=== PATIENT | male | born 1965 | race African-American/Black ===

== ENCOUNTER 2020-06-12 15:05 | Emergency (ER) | payer MEDICAID, SELFPAY ==
[~2020-06-12] VITALS: Ht 167.6 cm; Wt 77.3 kg
[~2020-06-12 15:05] MED LIST: FLUT44HFA IH; LORA10TA60 PO
[2020-06-12] MEDS ORDERED: 0.9% SODIUM CHLORIDE 10 ML SYRINGE IVP PRN (16:15)
[2020-06-12] MEDS ORDERED: FLUT44HFA IH (16:19)
[2020-06-12 18:24] LABS: BASOPHILS % (AUTO) 1.1 % (0.0-2.0); HEMATOCRIT 44.4 % (41-53); HEMOGLOBIN 14.4 g/dL (13.5-17.5); LYMPHOCYTES # (AUTO) 2.5 K/uL (1.0-4.8); LYMPHOCYTES % (AUTO) 39.4 % (22.0-44.0); MEAN CORPUSCULAR HEMOGLOBIN 30.3 pg (26.0-34.0); MEAN CORPUSCULAR HGB CONC 32.5 G/dL (31.0-37.0); MEAN CORPUSCULAR VOLUME 93 fL (80-100); MONOCYTES # (AUTO) 0.6 K/uL (0.1-1.0); MONOCYTES % (AUTO) 8.9 % (2.0-9.0); NEUTROPHILS # (AUTO) 3.1 K/uL (1.8-7.7); NEUTROPHILS % (AUTO) 47.6 % (40.0-70.0); PLATELET COUNT (AUTO) 317 K/uL (150-450); RED BLOOD CELL COUNT(AUTO) 4.77 MIL/uL (4.50-5.90); RED CELL DISTRIBUTION WIDTH 12.4 % (11.5-14.5)
[2020-06-12 18:50] LABS: ANION GAP 8 mmol/L (8-16); CALCIUM, TOTAL 9.5 mg/dL (8.8-10.5); CARBON DIOXIDE 29 mmol/L (22-29); CHLORIDE 106 mmol/L (98-107); CREATININE 1.41 mg/dL (0.60-1.30); GLOMERULAR FILTR. RATE CALC > 60 mL/min (>60); GLUCOSE,RANDOM 92 mg/dL (70-110); POTASSIUM 4.4 mmol/L (3.5-5.1); SODIUM SERUM 143 mmol/L (136-145); UREA NITROGEN, BLOOD 13 mg/dL (7-18)
[2020-06-12 18:56] LABS: ALANINE AMINOTRANSFERASE 35 U/L (12-78); ALBUMIN 4.1 g/dL (3.4-5.0); ALKALINE PHOSPHATASE 126 U/L (46-116); ASPARTATE AMINOTRANSFERASE 17 U/L (15-37); BILIRUBIN,TOTAL 0.5 mg/dL (0.1-1.0); TOTAL PROTEIN, SERUM 7.9 g/dL (6.4-8.2)
[2020-06-12 19:00] LABS: LACTIC ACID 1.8 mmol/L (0.4-2.0)
[2020-06-12 19:31] VITALS: BP 121/69
== END 2020-06-12 19:34 | disposition home or self-care (01) ==
LOC: EMS 15:07
DX: S80.11XA Contusion of right lower leg, initial encounter (principal); L03.115 Cellulitis of right lower limb; J45.909 Unspecified asthma, uncomplicated; Z88.0 Allergy status to penicillin; X58.XXXA Exposure to other specified factors, initial encounter; Y93.89 Activity, other specified; Y92.89 Other specified places as the place of occurrence of the external cause; Y99.8 Other external cause status
CPT/HCPCS: 83605; 87040; 93005; 93971; 99285

== ENCOUNTER 2025-04-06 12:17 | Emergency (ER) | payer MEDICAID ==
[~2025-04-06] VITALS: Ht 167.6 cm; Wt 90.9 kg
[~2025-04-06 12:17] MED LIST changes: +FLUT44H IH; -FLUT44HFA IH
[2025-04-06 12:22] VITALS: TEMP 97.3
[2025-04-06 12:36] VITALS: BP 116/72; PULSE 74; RESP 16; O2SAT 99
[2025-04-06] MEDS ORDERED: IBUP-1492 PO (12:57)
== END 2025-04-06 13:48 | disposition home or self-care (01) ==
LOC: EMS 12:18
DX: S86.911A Strain of unspecified muscle(s) and tendon(s) at lower leg level, right leg, initial encounter (principal); J45.909 Unspecified asthma, uncomplicated; Z88.0 Allergy status to penicillin; Z79.51 Long term (current) use of inhaled steroids; W19.XXXA Unspecified fall, initial encounter; Y93.89 Activity, other specified; Y92.89 Other specified places as the place of occurrence of the external cause; Y99.0 Civilian activity done for income or pay
CPT/HCPCS: 29505; 99283